=== PATIENT | male | born 1940 | race Caucasian/White ===

== ENCOUNTER → 2017-08-26 15:07 | Outpatient (CLI) | payer MEDICARE, OTHER ==
[2012-10-05 06:55] VITALS: BMI 28.8
== END | disposition home or self-care (01) ==
LOC: D.MRI 15:07
DX: M54.2 Cervicalgia (principal)

== ENCOUNTER 2017-10-24 11:58 | Inpatient (IN) | payer MEDICARE, OTHER ==
[~2017-10-24] VITALS: Ht 193 cm; Wt 86.4 kg
[2017-10-24 17:25] LABS: BASOPHILS 0.5 % (0-2); EOSINOPHILS 1.3 % (0-7); HEMATOCRIT 43.6 % (42.0-54.0); HEMOGLOBIN 15.1 g/dL (13.5-17.5); IMMATURE GRANULOCYTES 0.2 % (0-5); LYMPHOCYTES 21.3 % (15-50); MCH 32.5 pg (26.0-34.0); MCHC 34.6 g/dL (31.0-37.0); MEAN PLATELET VOLUME 9.2 fL (7.4-10.4); MONOCYTES 17.2 % (2-11); NEUTROPHILS 59.5 % (40-80); PLATELET COUNT 204 10x3/uL (130-400); RBC 4.64 10x6/uL (4.20-6.10); RDW 12.5 % (11.5-14.5); WBC 5.6 10x3/uL (4.8-10.8)
[2017-10-24 18:01] LABS: CALC OSMOLALITY 281 mosm/kg (275-300); CALCIUM 8.9 mg/dL (8.5-10.1); CARBON DIOXIDE 25.4 mmol/L (21.0-32.0); CHLORIDE - SERUM 104 mmol/L (98-107); CREATININE - SERUM 0.9 mg/dL (0.6-1.3); GLUCOSE 120 mg/dL (74-106); POTASSIUM - SERUM 4.3 mmol/L (3.5-5.1); SODIUM 140 mmol/L (136-145); UREA NITROGEN 19 mg/dL (7-18); eGFR NON AFRICAN AMERICAN 87 mL/min (90-120)
[2017-10-24] MEDS ORDERED: HYDROCODONE-APA1 TAB PO (18:34)
[2017-10-24] MEDS ORDERED: ZESTRIL40 MG PO (18:35)
[2017-10-24] MEDS ORDERED: ZOCOR40 MG PO (18:35)
[2017-10-24] MEDS ORDERED: TOVIAZ8 MG PO (18:36)
[2017-10-24] MEDS ORDERED: PROSCAR5 MG PO (18:36)
[2017-10-24 20:17] VITALS: BP 155/83; BMI 23.1
[2017-10-24 20:47] VITALS: BP 155/85
[2017-10-25] VITALS (7 sets, daily range): BP systolic 122–154; BP diastolic 75–93; Ht 193 cm; Wt 86.4 kg
[2017-10-26 04:25] VITALS: BP 145/90
[2017-10-26 08:39] VITALS: BP 147/79
[2017-10-26 12:45] VITALS: BP 146/86
[2017-10-26 17:11] VITALS: BP 141/57
[2017-10-26 20:00] VITALS: BP 142/88
[2017-10-27] VITALS: BP 151/79
[2017-10-27 04:00] VITALS: BP 149/93
[2017-10-27] MEDS ORDERED: DILAUDID2 MG PO (08:11)
[2017-10-27] MEDS ORDERED: COLACE100 MG PO (08:12)
[2017-10-27 09:11] VITALS: BP 188/105
== END 2017-10-27 09:15 | disposition home or self-care (01) | DRG 563 ==
LOC: D.RAD 11:58 → D.MS 15:18
PROVIDERS: Orthopaedic Surgery
DX: S42.102A Fracture of unspecified part of scapula, left shoulder, initial encounter for closed fracture (principal); T84.018A Broken internal joint prosthesis, other site, initial encounter; W19.XXXA Unspecified fall, initial encounter; I10 Essential (primary) hypertension; E78.5 Hyperlipidemia, unspecified; Z96.612 Presence of left artificial shoulder joint

== ENCOUNTER → 2018-03-07 09:26 | Outpatient (CLI) | payer MEDICARE, OTHER ==
[2017-10-25 13:03] VITALS: BMI 23.1
[~2018-03-07 09:26] MED LIST: COLACE100 MG PO; DILAUDID2 MG PO; HYDROCODONE-APA1 TAB PO; PROSCAR5 MG PO; TOVIAZ8 MG PO; ZESTRIL40 MG PO; ZOCOR40 MG PO
== END | disposition home or self-care (01) ==
LOC: D.MRI 09:26
DX: M25.522 Pain in left elbow (principal)